=== PATIENT | female | born 1985 | race Asian ===

== ENCOUNTER 2018-11-19 06:10 | Inpatient (IN) | payer OTHER ==
[2018-11-19] VITALS (18 sets, daily range): BP systolic 100–122; BP diastolic 52–80
[~2018-11-19] VITALS: Ht 167.6 cm; Wt 73.0 kg
[2018-11-19] MEDS ORDERED: LR 1,000 ML IV SCH (06:34)
[2018-11-19] MEDS ORDERED: LACTATED RINGER'S 1000 ML IV STA (06:34)
[2018-11-19 07:04] LABS: BASO % 0.6 % (0.0-1.0); EOS # 0.1 10^3/uL (0.0-0.50); EOS % 1.1 % (0.0-3.0); HEMATOCRIT 40.7 % (36.0-47.0); LYMPH # 1.5 10^3/uL (1.5-4.5); LYMPH % 20.3 % (24.0-44.0); MEAN CORPUSCULAR HEMOGLOBIN 31.7 pg (27.0-33.0); MEAN CORPUSCULAR HGB CONC 34.4 g/dl (32.0-36.5); MEAN CORPUSCULAR VOLUME 92.1 fl (80.0-96.0); MONO # 0.5 10^3/uL (0.0-0.8); MONO % 6.8 % (0.0-5.0); NEUTROPHILS # 5.1 10^3/uL (1.8-7.7); NEUTROPHILS % 70.2 % (36.0-66.0); PLATELET COUNT, AUTOMATED 224 10^3/uL (150-450); RED BLOOD COUNT 4.42 10^6/uL (4.00-5.40); WHITE BLOOD COUNT 7.2 10^3/uL (4.0-10.0)
[2018-11-19] MEDS ORDERED: FENTANYL 2MCG/ML ROPIVACAINE 0.2% IN 0.9% NACL 100ML IVBAG As Ordered ONE (07:12)
--- NOTE | 2018-11-19 07:19 | HPEPDOC ---
Obstetrical History & Physical General Date of Admission Nov 19, 2018 at 06:31 History of Present Illness 33 yo at 38+5 weeks gestation by LMP of 21Feb2018 c/w 1st trimester US presented to L&D with grossly ruptured membranes and in active labor. SROM occurred at ~0430. Contractions have been every 2-3 minutes and worsening in intensity. only complicated by AMA, and she had low risk cff DNA genetic screening. Chief Complaint: Contractions, term, LOF, term Information Provided By: Patient Age: 33 : 1 Term: 0 Pre-term: 0 Abortions: 0 Livin Care Care: Good Care Dating Final EDC: Nov 28, 2018 Final EDC for Daily Update: Nov 28, 2018 Final EDC by: LMP LMP: Feb 21, 2018 1st Trimester Date: Apr 28, 2018 Antepartum Course Diagnos(e)s AMA ---> low risk cff DNA genetic screening Initial low lying placenta ---> resolved on repeat US Past Medical History Past Obstetrical History : Past Obstetrical History: Primgravida Complications: No [employer] CONSULTANT History: No pertinent history Past Medical History Medical History Denies Surgical History: Canyon teeth Family History Significant Family History: Noncontributory Social History Marital Status: Family situation: Spouse/partner home Psychosocial History: No pertinent psych hx * Smoker: non-smoker Alcohol: Denies Drugs: denies Imunizations Tdap status: current Influenza Status: current Physical Examination Physical Examination GENERAL: Alert and oriented times three. ABDOMEN: Gravid and non-tender to touch. FETUS: Is vertex (VTX) by sterile vaginal examination (SVE) EXTREMITIES: No edema. Grossly ruptured membranes on exam. Laboratory Data 24H LABS Laboratory Tests 2 11/19/18 06:33: Serology Scanned Report Hepatitis B Testing 11/19/18 06:54: Immature Granulocyte % (Auto) 1.0, White Blood Count 7.2, Red Blood Count 4.42, Hemoglobin 14.0, Hematocrit 40.7, Mean Corpuscular Volume 92.1, Mean Corpuscular Hemoglobin 31.7, Mean Corpuscular Hemoglobin Concent 34.4, Red Cell Distribution Width 13.0, Platelet Count 224, Neutrophils (%) (Auto) 70.2H, Lymphocytes (%) (Auto) 20.3L, Monocytes (%) (Auto) 6.8H, Eosinophils (%) (Auto) 1.1, Basophils ( %) (Auto) 0.6, Neutrophils # (Auto) 5.1, Lymphocytes # (Auto) 1.5, Monocytes # (Auto) 0.5, Eosinophils # (Auto) 0.1, Basophils # (Auto) 0.0, Nucleated Red Blood Cells % (auto) 0.0 CBC/BMP Laboratory Tests 11/19/18 06:54 Red Blood Count 4.42, Mean Corpuscular Volume 92.1, Mean Corpuscular Hemoglobin 31.7, Mean Corpuscular Hemoglobin Concent 34.4, Red Cell Distribution Width 13 .0, Neutrophils (%) (Auto) 70.2 H, Lymphocytes (%) (Auto) 20.3 L, Monocytes (%) (Auto) 6.8 H, Eosinophils (%) (Auto) 1.1, Basophils (%) (Auto) 0.6, Neutrophils # (Auto) 5.1, Lymphocytes # (Auto) 1.5, Monocytes # (Auto) 0.5, Eosinophils # (Auto) 0.1, Basophils # (Auto) 0.0 Urine Culture: No Growth Pertinent Laboratoy Data Blood Type: A+ RBC Antibody Screen: Negative HIV: Negative Hepatitis B: Negative Hepatitis C: Unknown Rapid Plasma Reagin: Nonreactive Rubella: Immune Varicella: Immune Chlamydia/Gonorrhea: Negative Group B Streptococcus: Negative Quad Screen Test: Unknown (Had low risk cff DNA screening, AFP negative) Cystic Fibrosis: Unknown Glucose Tolerance Test: 129 Anatomy Ultrasound Placenta Location: Posterior Normal Anatomy: Yes Placenta Previa: No Other Ultrasounds Follow up US on [id number] demonstrated resolution of low lying placenta that was seen on anatomy US. Steroid Therapy Steroid Therapy: No Vaginal Examination Dilation: 6 cm Effacement: 90% Station: 0 Cervical Consistency: Soft Cervical Position: Anterior Presentation: Cephalic presentation Position: Vertex (occiput) Assessment Heart Rate (FHR): 125 Variability: Moderate Accelerations: Positive Decelerations: None Tocometer Frequency: regular Duration: greater than 60 seconds Strength: palpated as strong Assessment/Plan Assessment 33 yo at 38+5 weeks gestation presented in active labor and with SROM, clear fluid, and 0430. Plan Admit for expectant management of active labor. Apply IV fluids. GBS negative. Clear liquid diet. Patient may have epidural if desired. Anticipate . DO MAURICIO Zapata CHRISTOPHER J. DO Nov 19, 2018 07:19
[2018-11-19] MEDS ORDERED: RANI1SYP PO (07:21)
[2018-11-19] MEDS ORDERED: PRENTAB9 PO (07:21)
[2018-11-19] MEDS ORDERED: OXYTOCIN 30 UNITS IN 0.9% NaCl 500ML IV BAG (J2590) As Ordered ONE (08:36)
[2018-11-19] MEDS ORDERED: diphenhydrAMINE INJ 50MG/ML VIAL (J1200) IV PRN (10:00)
[2018-11-19] MEDS ORDERED: EPIDURAL/PCA KEYS XX PRN (10:00)
[2018-11-19] MEDS ORDERED: REFRIGERATOR IV KEYS XX PRN (10:00)
[2018-11-19] MEDS ORDERED: ePHEDrine SULFATE 25 MG/5 ML(5MG/ML) SYRINGE IV PRN (10:00)
[2018-11-19] MEDS ORDERED: EPIDURAL COMMENT XX SCH (10:00)
[2018-11-19] MEDS ORDERED: ONDANSETRON 4MG/2ML VIAL (J2405) IV PRN (10:00)
[2018-11-19] MEDS ORDERED: NALOXONE INJ 0.4 MG/1 ML VIAL (J2310) IV PRN (10:00)
[2018-11-19] MEDS ORDERED: FENTANYL/ROPIVACAINE/NACL BAG 100 ML EPIDURAL SCH (10:00)
[2018-11-19] MEDS ORDERED: LACTATED RINGER'S 1000 ML IV PRN (10:00)
--- NOTE | 2018-11-19 10:12 | DNPDOC ---
[facility] Delivery Note Delivery Note DATE OF DELIVERY: [id number] PREDELIVERY DIAGNOSIS: 38 5/7 weeks' gestation and labor. POST DELIVERY DIAGNOSIS: Delivered. PROCEDURE: Spontaneous vaginal delivery STOKER ERECTOR: Dr. Wan ANESTHESIA: epidural ESTIMATED BLOOD LOSS: 300 mL. FINDINGS: 7 pound 3 ounce female infant, Score 9/9 DELIVERY SUMMARY: SBAR from Dr Armijo at 0730. Getting epidural. After huff, was 8 cm and quickly was C/C. Excellent pusher, <1 hr. Signif delay of the vtx on the perineum, FHT reassuring throughout. Mod Ritgen done with overglove to good effect, glove immed removed, THOMAS restituted to ROP, no delay of eith ant/post shoulder, vigorous infant to abd. Cord C/C by FOB. Cord blood. Place nta intact. Fundus firm, pit going 999. Small post vag wall lac repaired with 3-0 vicryl. Left labia spilt and closed with 4-0 vicryl. Good cosmesis/hemostasis. Perineum and Cx intact. Uncomplicated. Sessions MD WAN,CORTNEY Alanis MD Nov 19, 2018 10:12
[2018-11-19] MEDS ORDERED: DIBUCAINE 1% OINTMENT 30GM TOP PRN (10:15)
[2018-11-19] MEDS ORDERED: MEASLES,MUMPS,RUBELLA VACCINE INJ (MMR-II) (90707) SC SCH (10:15)
[2018-11-19] MEDS ORDERED: RHOGAM 300 MCG (1500 IU) INJ (J2790) IM SCH (10:15)
[2018-11-19] MEDS ORDERED: METOCLOPRAMIDE INJ 10MG/2ML VIAL (J2765) IV PRN (10:15)
[2018-11-19] MEDS ORDERED: OXYTOCIN DRIP 30 UNITS in APPROPRIATE DILUENT 1 EA IV SCH (10:30)
[2018-11-19] MEDS: ACETAMINOPHEN TAB 650MG DOSE (2X325MG) PO PRN (18:18)
[2018-11-19] MEDS: DOCUSATE SODIUM 100 MG CAP PO SCH (21:00)
[2018-11-20 05:40] VITALS: BP 98/57
[2018-11-20] MEDS: PRENATAL VITAMINS CHEWABLE TABLET PO SCH (09:09)
[2018-11-20] MEDS: IBUPROFEN 800 MG TAB PO PRN ×2 (09:09→19:57)
[2018-11-20] MEDS: DOCUSATE SODIUM 100 MG CAP PO SCH ×2 (09:09→22:03)
--- NOTE | 2018-11-20 10:24 | IPN ---
DATE: 11/20/2018 This lady is a 33-year-old 1, now para 1, admitted at 38 and 5 weeks of gestation with contractions had an epidural in place, delivered a live female 7 pounds 3 ounces, of 9 and 9 at one and five minutes respectively. Risk factors is she was an AMA, other than that uneventful. On first day, we discussed phlebitis, cystitis, mastitis, endometritis and cellulitis, diet, excise pain management, pain in her breasts and wound care. Her vital signs this morning: Her blood pressure 98/57, respirations are 16, pulse 67 and temperature is 97.8. Her admitting hemoglobin was 14.0, hematocrit 40.7 and platelets were 224. Presently breast-feeding doing well. No issues at the present time. Chest is clear bilaterally bases. No wheezes or rhonchi. No costovertebral angle (CVA) tenderness. Abdomen is soft. Uterus 2 below. Lochia is moderate. Four quadrant bowel sounds. Perineum is intact. Plans are this patient is going to be discharged tomorrow morning with medications. Followup in six weeks' time at [facility]. All questions were answered.
[2018-11-20 10:45] VITALS: BP 103/59
[2018-11-20 18:02] VITALS: BP 113/60
[2018-11-20 18:05] VITALS: BP 119/56
[2018-11-20] MEDS: ACETAMINOPHEN TAB 650MG DOSE (2X325MG) PO PRN (22:46)
[2018-11-21 06:42] VITALS: BP 96/52
[2018-11-21] MEDS ORDERED: MAPA500T2 PO (07:52)
[2018-11-21] MEDS ORDERED: IBUP-1114 PO (07:52)
--- NOTE | 2018-11-21 07:58 | DS.PDOC ---
Discharge Summary General Date of Admission Nov 19, 2018 at 06:31 Date of Discharge [id number] Discharge Summary ADMITTING DIAGNOSES: Active labor, SROM DISCHARGE DIAGNOSES: Same, HOSPITAL COURSE: Admitted and delivery uncomplicated, . course uncomplicated. DISCHARGE MEDICATIONS: Motrin, Lanolin, Nor DISCHARGE INSTRUCTIONS: Nothing in the vagina for 6 weeks. F/U in OBGYN clinic in 6-8 weeks. Sessions Vital Signs/I&Os Vital Signs Date Time Temp Pulse Resp B/P (MAP) Pulse Ox O2 Delivery O2 Flow Rate FiO2 11/21/18 06:42 98.7 62 16 96/52 (67) 11/20/18 10:45 98 Discharge Medications Scheduled Multivitamins/ ( 27-0.8 mg) 1 Tab Tab, 1 TAB PO DAILY, (Reported) Ranitidine Hcl (Ranitidine HCl) 15 Mg/Ml Syrp, 150 MG PO BID, (Reported) Scheduled PRN Acetaminophen (Mapap) 500 Mg Tab, 650 MG PO Q4HP PRN for PAIN SCALE 1-5, (Reported) Ibuprofen (Ibuprofen) 400 Mg Tab, 800 MG PO Q8HP PRN for PAIN, (Reported) Allergies Coded Allergies: No Known Allergies (Unverified , 11/19/18) SESSIONS,CORTNEY Alanis MD Nov 21, 2018 07:58
--- NOTE | 2018-11-21 08:00 | IPNPDOC ---
Text Note Date of Service The patient was seen on 11/21/18. NOTE PPD2 States feeling well, pain controlled with prescribed meds. Baby bonding and feeding well. No heavy VB. Lochia slowing. Ambulatory. Tolerating PO without issues. Voiding spont. VSSAF NAD A&O RRR CTAB LE no C/C/E Ut at U-2, firm a/p: Doing well. Cont routine care. D/C today. Sessions VS,Analisa, I+O VSAnalisa, I+O Vital Signs Date Time Temp Pulse Resp B/P (MAP) Pulse Ox O2 Delivery O2 Flow Rate FiO2 11/21/18 06:42 98.7 62 16 96/52 (67) 11/20/18 10:45 98 SESSIONS,CORTNEY Alanis MD Nov 21, 2018 08:00
[2018-11-21] MEDS: PRENATAL VITAMINS CHEWABLE TABLET PO SCH (08:29)
[2018-11-21] MEDS: IBUPROFEN 800 MG TAB PO PRN (08:30)
[2018-11-21] MEDS: DOCUSATE SODIUM 100 MG CAP PO SCH (08:30)
== END 2018-11-21 13:15 | disposition home or self-care (01) | DRG 807 ==
LOC: M LDO 06:10 → M LDI 06:31 → M OBS 11:45
PROVIDERS: ADMIT Obstetrics & Gynecology; ATTEND Obstetrics & Gynecology
PROC: 10E0XZZ Delivery of Products of Conception, External Approach (ICD-10-PCS; principal; 2018-11-19)
PROC: 0HQ9XZZ Repair Perineum Skin, External Approach (ICD-10-PCS; 2018-11-19)
DX: O70.0 First degree perineal laceration during delivery (principal); Z37.0 Single live birth; Z3A.38 38 weeks gestation of pregnancy